=== PATIENT | male | born 1995 | race African-American/Black ===

== ENCOUNTER 2021-05-02 23:54 | Emergency (ER) | payer OTHER, SELFPAY ==
[2021-05-02 23:59] VITALS: BP 136/82; PULSE 78; RESP 18; TEMP 36.4; O2SAT 99
[2021-05-03] MEDS: TETANUS,DIPHTHERIA,AC PERTUSSIS ADULT (0.5 ML) BOOSTRIX IM (01:03)
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
[2021-05-03] MEDS: AMOXICILLIN/CLAVULANATE K 875-125 MG TAB 1 TABLET PO (01:35)
[2021-05-03 01:37] VITALS: BP 124/78; PULSE 89; RESP 17; O2SAT 97
== END 2021-05-03 01:38 | disposition home or self-care (01) ==
PROVIDERS: Emergency Provider Emergency Medicine
DX: S01.511A Laceration without foreign body of lip, initial encounter (principal); Y04.0XXA Assault by unarmed brawl or fight, initial encounter; Z23 Encounter for immunization
CPT/HCPCS: 90471; 90715; 99283; A9270

== ENCOUNTER 2021-10-15 20:43 | Emergency (ER) | payer OTHER, SELFPAY ==
[2021-10-15 20:48] VITALS: BP 139/96; PULSE 65; RESP 16; TEMP 36.6; O2SAT 100
--- NOTE | 2021-10-15 21:19 | ED.GENADULT ---
HPI - General Adult General Chief complaint: Eye Problems Stated complaint: left eye pain Time Seen by Provider: 10/15/21 20:51 History of Present Illness HPI narrative: Patient is a 26-year-old male who presents ER with left eye pain. Ongoing for a week. Was seen at an urgent care and were prescribed ofloxacin drops. No known trauma to the eye. He is having some tearing and rubs his eye regularly. Sclera and conjunctiva are injected. He is recently developed similar inflammation in his right eye. He has mild runny nose. No fevers or chills or sweats. Typically wears contacts was not currently wearing them and left eye so his vision is blurry but there is no other changes to his vision including flashers/floaters/diplopia. No purulent discharge. Related Data Home Medications Medication Instructions Recorded Confirmed ofloxacin 0.3 % eye drops 2 drp QID 10/15/21 10/15/21 Allergies Allergy/AdvReac Type Severity Reaction Status Date / Time No Known Allergies Allergy Verified 10/15/21 20:46 Review of Systems Constitutional: Constitutional: Denies chills and Denies fever(s) Eyes: Eyes: Denies change in vision and Denies photophobia Comments: Tearing, scleral/conjunctival irritation. ENT: Denies sore throat Comments: Rhinorrhea PMFSH Past Medical History Medical History (Updated 10/15/21 @ 21:33 by Guillermo Mccann MD) Healthy adult male Surgical History Surgical History (Updated 10/15/21 @ 21:25 by Guillermo Mccann MD) No pertinent past surgical history Exam Narrative: GENERAL: Well-appearing, well-nourished, and in no acute distress. HEAD: Normocephalic, atraumatic. Eyes: PERRL, EOMI. Both eyes viewed with magnification by slit lamp and with fluorescein staining. Right eye with scleral injection and conjunctival injection. No foreign body or corneal abrasion. Left eye with small corneal abrasion at the 11 o'clock position. There is conjunctival injection and edema as well as scleral injection. No foreign body noted left eye. Eyelid eversion performed without foreign body. SKIN: Warm, dry, no rash. NEURO: Alert and oriented x3. PSYCH: Normal mood and affect. Course Course Emergency Course: Discussed treatment plan. Patient verbalized understanding. Discharge home. Recommend follow-up with ophthalmology. Vital Signs Vital signs: Vital Signs Temperature 98 F 10/15/21 20:48 Pulse Rate 65 10/15/21 20:48 Respiratory Rate 16 10/15/21 20:48 Blood Pressure 139/96 H 10/15/21 20:48 Pulse Oximetry 100 10/15/21 20:48 Temperature 98 F 10/15/21 20:48 Pulse Rate 65 10/15/21 20:48 Respiratory Rate 16 10/15/21 20:48 Blood Pressure 139/96 H 10/15/21 20:48 Pulse Oximetry 100 10/15/21 20:48 Medical Decision Making Vital Signs Vital Signs: Vital Signs Temperature 98 F 10/15/21 20:48 Pulse Rate 65 10/15/21 20:48 Respiratory Rate 16 10/15/21 20:48 Blood Pressure 139/96 H 10/15/21 20:48 Pulse Oximetry 100 10/15/21 20:48 Temperature 98 F 10/15/21 20:48 Pulse Rate 65 10/15/21 20:48 Respiratory Rate 16 10/15/21 20:48 Blood Pressure 139/96 H 10/15/21 20:48 Pulse Oximetry 100 10/15/21 20:48 Discharge Plan Discharge Clinical Impression: Corneal abrasion, Acute viral conjunctivitis of both eyes Patient Disposition: Home, Self-Care Condition: Stable Instructions: Antibiotic Form, Corneal Abrasion (ED), Conjunctivitis (ED) Additional Instructions: It is felt you have a viral infection causing inflammation of your eyes. This lasts 7 to 14 days. Due to rubbing her eyes you have gotten a scratch in her left cornea. This will be treated with apical antibiotics since is not healed with antibiotics you have been using. Return to the ER if you have thick drainage from your eye, you cannot see, or you have severe pain in your eye. Is recommend you follow-up with an calendering machine operator at a local [facility] for [facility]
[2021-10-15] MEDS: TETRACAINE HCL 0.5% OPHTH SOLN 4 ML BTL 1 DROP (21:32)
[2021-10-15] MEDS: FLUORESCEIN SOD 1 MG/STRIP (21:32)
== END 2021-10-15 21:42 | disposition home or self-care (01) ==
PROVIDERS: Emergency Provider Emergency Medicine
DX: B30.9 Viral conjunctivitis, unspecified (principal); S05.02XA Injury of conjunctiva and corneal abrasion without foreign body, left eye, initial encounter; X58.XXXA Exposure to other specified factors, initial encounter
CPT/HCPCS: 99283

== ENCOUNTER 2022-09-29 16:16 | Emergency (ER) | payer OTHER, SELFPAY ==
--- NOTE | 2022-09-29 16:24 | ED.MALEGU ---
HPI - Male Genitourinary General Chief complaint: Urogenital-Male Stated complaint: STD Time Seen by Provider: 09/29/22 16:54 Source: patient and RN notes reviewed Mode of arrival: ambulatory Limitations: no limitations History of Present Illness HPI Narrative: 27 year old female presents with concern for STD exposure. He reports 2-3 day history of dysuria and penile discharge. Reports he was exposed to gonorrhea. He denies fever, aches, chills, sweats Complaint: possible STD exposure Related Data Allergies Allergy/AdvReac Type Severity Reaction Status Date / Time No Known Allergies Allergy Verified 09/29/22 16:23 Review of Systems Review of Systems: CONSTITUTIONAL: Denies malaise, chills, sweats, or fever. CARDIOVASCULAR: Denies chest pain, palpitations, or edema. RESPIRATORY: Denies cough or dyspnea. GASTROINTESTINAL: Denies abdominal pain, nausea, vomiting, diarrhea GENITOURINARY: Reports dysuria, penile discharge. Denies frequency, urgency, suprapubic pressure. Denies flank pain or hematuria. SKIN: Denies rash or itching. MUSCULOSKELETAL: Denies back pain or myalgia. All systems reviewed & are unremarkable except as noted in HPI and below PMFSH Past Medical History Medical History (Updated 09/29/22 @ 17:03 by Freda Olivares NP) Healthy adult male Surgical History Surgical History (Updated 10/15/21 @ 21:25 by Guillermo Mccann MD) No pertinent past surgical history Comments At time of signature, agree with nursing past medical, surgical, social and family history. There is no relevant family history pertinent to the presenting complaint Exam Narrative: GENERAL: Well-appearing, well-nourished, and in no acute distress. HEAD: Normocephalic. EYES: PERRLA, conjunctivae clear. NECK: Supple. No lymphadenopathy CHEST: Clear to auscultation. No respiratory distress. HEART: Regular rate and rhythm. SKIN: Warm, dry, no rash. NEURO: Alert and oriented x3. PSYCH: Normal mood and affect Course Course Emergency Course: Patient is aware of diagnosis, understands and agrees to treatment plan. Anticipatory guidance given. Patient agrees to follow-up as directed and is aware of reasons to seek care at the emergency department. Portions of this record may have been created with voice recognition software Level of Care: Express Care Visit Vital Signs Vital signs: Reviewed. MDM - Male Genitourinary MDM Narrative Medical decision making narrative: Exam findings show no acute concerns or changes; patient is non-toxic appearing and is in no distress. Patient is appropriate for outpatient treatment and follow-up. Critical Care Time Critical Care Time Critical Care Time: No Discharge Plan Discharge Clinical Impression: Exposure to STD Patient Disposition: Home, Self-Care Condition: Stable Instructions: Antibiotic Form, Safe Sex Practices (ED) Additional Instructions: You have been tested for potential gonorrhea, chlamydia, and trichomoniasis today. You have received antibiotics to treat gonorrhea today, a prescription has been called into your pharmacy to treat chlamydia and trichomoniasis. You will receive a phone call in 2-3 days with the results of today's testing. It is very important that you avoid unprotected intercourse during treatment and for 7 days AFTER TREATMENT is complete and until your partner(s) have been treated. Please encourage your partner(s) to seek testing and treatment. When you have been exposed to sexually transmitted infections, it is important that you seek comprehensive testing, since we do not provide testing for all sexually transmitted infections. Some infections can have no symptoms, but cause serious health problems. Contact your health care provider or report to the emergency department if: You have genital swelling or pain, or unusual bleeding. You have joint pain, rash, swollen lymph nodes or night sweats. You are severe abdominal pain. You h
[2022-09-29 16:31] VITALS: BP 119/78; PULSE 79; RESP 16; TEMP 37; O2SAT 99
[2022-09-29] MEDS: cefTRIAXone 500 MG, LIDOCAINE HCL 1% LOCAL INJ 1 ML IM (17:24)
== END 2022-09-29 17:38 | disposition home or self-care (01) ==
PROVIDERS: Emergency Provider Nurse Practitioner
DX: A54.9 Gonococcal infection, unspecified (principal); A74.9 Chlamydial infection, unspecified
CPT/HCPCS: 87491; 87591; 87661; 96372; 99213; G0463; J0696

== ENCOUNTER 2022-12-28 18:35 | Emergency (ER) | payer OTHER, SELFPAY ==
[2022-12-28 18:45] VITALS: BP 132/83; PULSE 71; RESP 12; TEMP 37.4; O2SAT 100
--- NOTE | 2022-12-28 19:04 | ED.GENADULT ---
HPI - General Adult General Chief complaint: Nausea/Vomiting/Diarrhea Stated complaint: stomach issue Time Seen by Provider: 12/28/22 19:04 Source: patient, RN notes reviewed and old records reviewed Mode of arrival: ambulatory Limitations: no limitations History of Present Illness HPI narrative: 27 year old male who presents to [facility] care with complaints of nasal congestion, drainage and cough for the past 4-5 days after stating that son had been ill with an upper respiratory infection. Patient states that he has been taking Ibuprofen and cough syrup for his cold symptoms. 3 days he has been having burning like sensation in his throat like acid reflux but today he started having some discomfort in his epigstric area, has not taken any OTC medications for this complaint. patient denies any nausea or vomiting or diarrhea or any known fevers or body aches. MD complaint: URI, epigastric pain, appetite but can't eat Onset (ago): day(s) (4) Location: abdomen (epigastric) Severity scale (1-10): 4 Quality: burning and aching Treatments prior to arrival: NSAID and other (Robitussin) Related Data Allergies Allergy/AdvReac Type Severity Reaction Status Date / Time No Known Allergies Allergy Verified 12/28/22 18:45 Review of Systems Review of Systems: CONSTITUTIONAL: Denies fever, chills, or sweats. EYES: Denies visual changes, redness, or discharge. ENT: Reports rhinorrhea, congestion, no sore throat, or otalgia. CARDIOVASCULAR: Denies chest pain, palpitations, or edema. RESPIRATORY: Reports cough denies dyspnea. GASTROINTESTINAL: states epigastric discomfort, reports nausea,no vomiting, or diarrhea. GENITOURINARY: Denies dysuria or hematuria. SKIN: Denies rash or itching. MUSCULOSKELETAL: Denies back pain, joint pain, or myalgia. NEUROLOGIC: Denies headache, numbness, or weakness. PSYCHIATRIC: Denies anxiety or depression. All systems reviewed & are unremarkable except as noted in HPI and below PMFSH Past Medical History Medical History (Updated 12/31/22 @ 08:21 by Abby Koroma NP) Healthy adult male Surgical History Surgical History (Updated 10/15/21 @ 21:25 by Guillermo Mccann MD) No pertinent past surgical history Social History Social History (Updated 12/28/22 @ 19:16 by Abby Koroma NP) Smoking status: Current every day smoker Tobacco type: cigarettes Alcohol intake: current Alcohol use details: social Substance use type: does not use Living arrangements: with family Gender identity (if verbalized by the patient): Male Comments At time of signature, agree with nursing past medical, surgical, social and family history. There is no relevant family history pertinent to the presenting complaint Exam Narrative: GENERAL: Well-appearing, well-nourished, and in no acute distress. HEAD: Normocephalic, atraumatic. EYES: PERRLA and EOMI. ENT: Nares red with some clear rhinorrhea no epistaxis. Mucous membranes moist.TM's normal with good light reflex, throat pink with no lesions or swelling NECK: Supple. no lymphadenopathy CHEST: Clear to auscultation. No respiratory distress. cough noted SAO2 100% on room air. HEART: Regular rate and rhythm. No murmur heard. Normal peripheral pulses. ABDOMEN: Soft, nontender to palpation, nondistended, normal active bowel sounds.epigastric burning and discomfort no vomiting or diarrhea admits to some nausea. EXTREMITIES: Normal range of motion. No edema. SKIN: Warm, dry, no rash. NEURO: No focal deficits. Alert and oriented x3. Course Course Emergency Course: Patient is aware of diagnosis, understands and agrees to treatment plan.? Anticipatory guidance given.? Patient agrees to follow-up as directed and is aware of reasons to seek care at the emergency department. Portions of this record may have been created with voice recognition software Level of Care: Express Care Visit Vital Signs Vital signs: Vital Signs Temperature 37.4 C 12/28/22
== END 2022-12-28 19:28 | disposition home or self-care (01) ==
PROVIDERS: Emergency Provider Registered Nurse; PCP Family Medicine
DX: J06.9 Acute upper respiratory infection, unspecified (principal); R05.9 Cough, unspecified; K29.00 Acute gastritis without bleeding; F17.210 Nicotine dependence, cigarettes, uncomplicated
CPT/HCPCS: 99213; G0463

== ENCOUNTER 2023-09-12 10:14 | Emergency (ER) | payer OTHER, SELFPAY ==
[2023-09-12 10:30] VITALS: BP 133/85; PULSE 80; RESP 12; TEMP 37.1; O2SAT 100
--- NOTE | 2023-09-12 10:44 | ED.URI ---
HPI - URI/Sore Throat General Chief Complaint: Upper Respiratory Infection Stated Complaint: sinus issue COVID exp 4 days ago Time Seen by Provider: 09/12/23 10:37 Source: patient and RN notes reviewed Mode of arrival: ambulatory Limitations: no limitations History of Present Illness HPI Narrative: Patient presents today with a 2 day history of nasal congestion and sinus pressure, slight cough with occasional shortness of breath. States he was exposed to COVID 3-4 days ago. Denies fever, sore throat, ear pain. He has tried no [id number] treatment prior to arrival. History of seasonal allergies but does not currently take any control medicine Related Data Home Medications Medication Instructions Recorded Confirmed No Home Medications 09/12/23 09/12/23 Allergies Allergy/AdvReac Type Severity Reaction Status Date / Time No Known Allergies Allergy Verified 12/28/22 18:45 Review of Systems Review of Systems: CONSTITUTIONAL: Denies body aches, fever, chills, or sweats. EYES: Denies visual changes, redness, or discharge. ENT: Denies rhinorrhea, sore throat, or otalgia.+ nasal congestion, sinus pressure CARDIOVASCULAR: Denies chest pain, palpitations, or edema. RESPIRATORY:+ cough, shortness of breath GASTROINTESTINAL: Denies abdominal pain, nausea, vomiting, or diarrhea. GENITOURINARY: Denies dysuria or hematuria. SKIN: Denies rash, itching, or wounds. MUSCULOSKELETAL: Denies back pain, joint pain, or myalgia. NEUROLOGIC: Denies headache, numbness, tingling, or weakness. PSYCH: Denies depression or anxiety. [facility] Past Medical History Medical History Healthy adult male Surgical History Surgical History No pertinent past surgical history Social History Social History Smoking status: Current every day smoker Tobacco type: cigarettes Alcohol intake: current Alcohol use details: social Substance use type: does not use Living arrangements: with family Gender identity (if verbalized by the patient): Male Comments At time of signature, I have reviewed and agree with nursing past medical, surgical, social and family history unless otherwise noted. Please see nursing chart for further information. There is no relevant family history pertinent to the presenting complaint Exam Narrative: GENERAL: Well-appearing, well-nourished, and in no acute distress. HEAD: Normocephalic, atraumatic. EYES: EOMI. No redness or drainage. Conjunctivae normal. ENT: Mucous membranes pink and moist. Nares congestion with rhinorrhea. TMs normal bilaterally. Throat normal. Uvula midline. NECK: Normal AROM. Supple. No lymphadenopathy. CHEST: No respiratory distress. Clear to auscultation. HEART: Regular rate and rhythm. No murmur appreciated. EXTREMITIES: Normal range of motion. No edema. SKIN: Warm, dry, no rash. Capillary refill normal. Normal skin turgor. NEURO: No focal deficits. Alert and oriented x3. Gait steady. PSYCH: Normal affect. No signs of depression or anxiety. Course Course Level of Care: Express Care Visit Vital Signs Vital signs: Vital Signs Temperature 98.7 F 09/12/23 10:30 Pulse Rate 80 09/12/23 10:30 Respiratory Rate 12 09/12/23 10:30 Blood Pressure 133/85 09/12/23 10:30 Pulse Oximetry 100 09/12/23 10:30 Oxygen Delivery Room Air 09/12/23 10:30 Temperature 98.7 F 09/12/23 10:30 Pulse Rate 80 09/12/23 10:30 Respiratory Rate 12 09/12/23 10:30 Blood Pressure 133/85 09/12/23 10:30 Pulse Oximetry 100 09/12/23 10:30 Oxygen Delivery Room Air 09/12/23 10:30 Reviewed MDM - URI/Sore Throat MDM Narrative Medical decision making narrative: COVID and influenza negative. Symptoms likely due to seasonal allergies vs URI. Discussed [id number] medi
== END 2023-09-12 10:55 | disposition home or self-care (01) ==
PROVIDERS: Emergency Provider Nurse Practitioner
DX: J30.2 Other seasonal allergic rhinitis (principal); Z20.822 Contact with and (suspected) exposure to COVID-19; F17.210 Nicotine dependence, cigarettes, uncomplicated
CPT/HCPCS: 87426; 87804; 99213; G0463

== ENCOUNTER 2023-09-24 18:08 | Emergency (ER) | payer OTHER, SELFPAY ==
--- NOTE | ~2023-09-24 | XR_ITS ---
EXAMINATION: XR chest 2V 09/24/2023 19:15 INDICATION: Cough PROCEDURE: 2 view chest COMPARISON: No prior studies FINDINGS: The lungs are clear. The cardiomediastinal silhouette is within normal limits. There are no pleural effusions. There is no pneumothorax suspected. IMPRESSION: 1: NO ACUTE CARDIOPULMONARY DISEASE. Reviewed, dictated and finalized at location A.
--- NOTE | 2023-09-24 18:14 | ED.PSYCH ---
HPI - Psych General Chief Complaint: Psychiatric Symptoms Stated Complaint: hearing voices Time Seen by Provider: 09/24/23 18:12 History of Present Illness HPI Narrative: Patient is a 28 year old male with history of alcohol use and occasional drug use here with paranoia and hallucinations. Patient and mom state that the auditory hallucinations have been going on for several years however he has never sought care for them in the past. He describes paranoia and auditory hallucinations which include feeling as though the police have planted cameras throughout his home and are watching and listening to him. He describes hearing police surveillance. He denies any command hallucinations. No SI/HI. Patient does note he attempts to drown out the sounds by drinking alcohol and occasionally using drugs, he last drank this weekend and believes he used meth this weekend. 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 He otherwise feels well, no prior mental health diagnoses. He has a family history of depression and anxiety in his mom's side of the family however he is unsure about his dad's side of the family. He notes a cough over the last 1 week. Non productive. No associated fever, chills, shortness of breath. Related Data Home Medications Medication Instructions Recorded Confirmed No Home Medications 09/12/23 09/12/23 Allergies Allergy/AdvReac Type Severity Reaction Status Date / Time No Known Allergies Allergy Verified 09/24/23 18:40 Review of Systems Review of Systems: All systems reviewed & are unremarkable except as noted in HPI and below PMFSH Past Medical History Medical History Healthy adult male Surgical History Surgical History No pertinent past surgical history Social History Social History Smoking status: Current every day smoker Tobacco type: cigarettes Alcohol intake: current Alcohol use details: social Substance use type: does not use Living arrangements: with family Gender identity (if verbalized by the patient): Male Exam Narrative: GENERAL: Well-appearing, well-nourished, and in no acute distress. HEAD: Normocephalic, atraumatic. EYES: PERRLA and EOMI. ENT: Nares clear. Mucous membranes moist. NECK: Supple. CHEST: Clear to auscultation. No respiratory distress. HEART: Regular rate and rhythm. Normal peripheral pulses. ABDOMEN: Soft, nontender, nondistended. EXTREMITIES: Normal range of motion. No edema. SKIN: Warm, dry, no rash. NEURO: No focal deficits. Alert and oriented x3. PSYCH: Normal mood and affect. Paranoia, auditory and visual hallucinations. Course Course Emergency Course: Chart review performed. Patient here with psychiatric symptoms. Triage vitals normal. Last visit in our system for URI. Patient seen and evaluated. He is in no distress, having some hallucinations and paranoia of police surveillance. He has never attempted to get care for these since they began about 2 years ago. Will do behavioral health lab work, CXR given cough, have [facility] come and evaluate him. Patient and mom at bedside agreeable to workup and plan. Lab work reviewed, CBC unremarkable, CMP grossly normal. UA negative for UTI. UDS positive for opiates and amphetamines. ETOH negative. COVID negative. CXR negative. Patient medically cleared at this time for [facility] evaluation. Patient has been evaluated by [facility]. Extensive resources have been provided. Safety plan has been performed. The results of pertinent diagnostic studies and exam findings were discussed. The patient?s provisional diagnosis and plan of care were discussed with the patient and present family.
[2023-09-24 18:15] VITALS: BP 134/90; PULSE 110; RESP 16; TEMP 37.1; O2SAT 98
[2023-09-24 18:35] LABS: Basophils Absolute Auto 0.1 K/mm3 (0.0-0.1); Basophils Percent Auto 0.9 % (0.2-1.2); Eosinophils Absolute Auto 0.2 K/mm3 (0-0.3); Eosinophils Percent Auto 2.7 % (0-4.4); Hemoglobin 16.6 g/dL (14.0-18.0); Immature Granulocyte Absolute 0.02 K/mm3 (0.00-0.031); Immature Granulocyte Percent A 0.2 % (0-0.5); Lymphocytes Absolute Auto 2.02 K/mm3 (0.9-3.2); Lymphocytes Percent Auto 24.6 % (18.3-44.2); Mean Corpuscular HGB Conc 34.6 g/dl (32-36); Mean Corpuscular Hemoglobin 29.9 pg (26-34); Mean Corpuscular Volume 86.3 fl (80-100); Mean Platelet Volume 8.3 fl (7.4-10.4); Monocytes Absolute Auto 0.8 K/mm3 (0.1-0.6); Monocytes Percent Auto 9.9 % (2.6-8.5); Neutrophils Absolute Auto 5.1 K/mm3 (1.3-6.7); Neutrophils Percent Auto 61.7 % (45.5-73.1); Platelet Count Result 456 k/mm3 (150-375); Red Blood Count 5.56 M/mm3 (4.6-6.20); Red Cell Distribution Width 12.9 % (11.5-14.5); White Blood Count 8.2 K/mm3 (4.5-10.0)
[2023-09-24 18:51] LABS: Alanine Aminotransferase 36 U/L (6-50); Albumin Level 4.6 g/dL (3.5-5.1); Alkaline Phosphatase 89 U/L (38-126); Anion Gap 8 mmol/L (4-12); Aspartate Amino Transferase 37 U/L (17-59); Bilirubin,Total 0.9 mg/dL (0.2-1.3); Blood Urea Nitrogen 9 mg/dL (9-20); Calcium 9.4 mg/dL (8.4-10.2); Carbon Dioxide 25 mmol/L (22-30); Chloride 106 mmol/L (98-107); Estimated CRCL calculation 103 ml/min; Estimated Glomerular Filt Rate > 60; Glucose 151 mg/dL (65-110); Sodium 139 mmol/L (137-145)
[2023-09-24 18:57] LABS: Appearance Urine Clear (Clear); Bacteria Urine None Seen /hpf; Bilirubin Urine 1+ (Negative); Blood Urine Negative (Negative); Color Urine Dark Yellow (Yellow); Glucose Urine UA Negative (Negative); Ketones Urine 1+ mg/dL (Negative); Leukocyte Esterase Ur Trace LEU/UL (Negative); Need Manual Microscopic Reviewed; Nitrate Urine Negative (Negative); Protein Urine Trace mg/dL (Negative); RBC Urine 0-2 /hpf (0-2); Specific Grav Ur 1.024 (1.001-1.035); Squamous Epithelial Cell Urine None Seen /hpf (Few); pH Urine 5.5 (5.0-9.0)
[2023-09-24 18:58] LABS: Add Urine Microscopic? YES
[2023-09-24 19:02] LABS: Barbiturate Screen Urine Negative (Negative); Benzodiazepines Screen Urine Negative (Negative)
[2023-09-24 19:05] LABS: Cannabinoid Screen Urine Negative (Negative); Cocaine Screen Urine Negative (Negative); Methadone Screen Urine Negative (Negative); Opiate Screen Urine Positive (Negative); Phencyclidine Screen Urine Negative (Negative)
[2023-09-24 19:10] LABS: Ethanol < 10 mg/dL (<10)
[2023-09-24 19:11] LABS: SARS-CoV-2 RNA PCR Negative (Negative)
[2023-09-24 19:27] LABS: Amphetamine Screen Urine Positive (Negative)
[2023-09-24 19:34] LABS: Thyroid Stimulating Hormone Reflex 0.839 uIU/mL (0.465-4.68)
== END 2023-09-24 21:10 | disposition home or self-care (01) ==
PROVIDERS: Emergency Provider Student in an Organized Health Care Education/Training Program
DX: F22 Delusional disorders (principal); Z11.52 Encounter for screening for COVID-19; F17.210 Nicotine dependence, cigarettes, uncomplicated
CPT/HCPCS: 36415; 71046; 80053; 80307; 81001; 84443; 85025; 87086; 87635; 99284

== ENCOUNTER 2023-11-20 17:56 | Emergency (ER) | payer OTHER, SELFPAY ==
[2023-11-20 18:08] VITALS: BP 122/69; PULSE 63; RESP 16; TEMP 37; O2SAT 100
--- NOTE | 2023-11-20 18:19 | ED.WOUNDLAC ---
HPI - Wound/Laceration General Chief Complaint: Wound/Laceration Stated Complaint: Left Hand Finger Laceration Source: patient History of Present Illness HPI narrative: Patient presents with complaints of laceration to left 3rd finger. He reports the laceration happened while at work at approximately 2:00 p.m. today. It was a crush injury, metal fell on to the left 3rd digit. He is unable to feel the affected digit. There is a laceration that involves the nail. He does not retain full range of motion to the affected finger. He does report that his tetanus is up-to-date, less than 5 years old Related Data Home Medications Medication Instructions Recorded Confirmed No Home Medications 09/12/23 11/20/23 Allergies Allergy/AdvReac Type Severity Reaction Status Date / Time No Known Allergies Allergy Verified 11/20/23 18:29 Review of Systems Review of Systems: All systems reviewed & are unremarkable except as noted in HPI and below Constitutional: Constitutional: Reports no additional constitutional complaints ENT: Reports system reviewed and no additional complaints, except as documented Cardiovascular: Cardiovascular: Reports no additional cardiovascular complaints Respiratory: Respiratory: Reports no additional respiratory complaints Gastrointestinal: Gastrointestinal: Reports no additional gastrointestinal complaints Musculoskeletal: Musculoskeletal: Reports as per HPI Integumentary/Breasts: Skin/Breast: Reports as per HPI Neurologic: Reports as per HPI [facility] Past Medical History Medical History Healthy adult male Surgical History Surgical History No pertinent past surgical history Social History Social History Smoking status: Current every day smoker Tobacco type: cigarettes Alcohol intake: current Alcohol use details: social Substance use type: does not use Living arrangements: with family Gender identity (if verbalized by the patient): Male Exam Const: General: cooperative, no acute distress, alert and awake Orientation/consciousness: oriented to person, oriented to place and oriented to time HENMT: Head: normal to inspection Resp: Effort & Inspection: normal respiratory effort and able to speak in complete sentences Auscultation: clear to auscultation bilaterally, no crackles, no rales, no rhonchi and no wheezes Cardio: Palpation: normal PMI Rate: regular rate Rhythm: regular rhythm Heart sounds: S1 normal heart sound present and S2 normal heart sound present Neuro: General: oriented to person, oriented to place and oriented to time Cranial nerves: Yes CN's II-XII intact bilaterally Extrem: Right upper extremity: Extremity exam: right hand (Left 3rd digit with crush injury, lac extends through nail bed. ) abnormal ROM of finger unable to flex; neuromotor exam abnormal (Unable to feel finger) Psych: Appearance: grossly normal Thought process: Normal thought process present Insight: Good insight present (Psych) Judgement: Good judgement present (Psych) Course Course Level of Care: Express Care Visit Vital Signs Vital signs: Vital Signs Temperature 98.6 F 11/20/23 18:08 Pulse Rate 63 11/20/23 18:08 Respiratory Rate 16 11/20/23 18:08 Blood Pressure 122/69 11/20/23 18:08 Pulse Oximetry 100 11/20/23 18:08 Oxygen Delivery Room Air 11/20/23 18:08 Temperature 98.6 F 11/20/23 18:08 Pulse Rate 63 11/20/23 18:08 Respiratory Rate 16 11/20/23 18:08 Blood Pressure 122/69 11/20/23 18:08 Pulse Oximetry 100 11/20/23 18:08 Oxygen Delivery Room Air 11/20/23 18:08 Transfer Transfered to: [facility] Transportation: Other (private car, declines EMS transport) Transfer rationale: Patient with significant crush injury to the left 3rd finger, requires higher level of c
== END 2023-11-20 18:21 | disposition short-term general hospital (02) ==
PROVIDERS: Emergency Provider Nurse Practitioner Family
DX: S67.193A Crushing injury of left middle finger, initial encounter (principal); S61.313A Laceration without foreign body of left middle finger with damage to nail, initial encounter; W20.8XXA Other cause of strike by thrown, projected or falling object, initial encounter; Y99.0 Civilian activity done for income or pay; F17.210 Nicotine dependence, cigarettes, uncomplicated
CPT/HCPCS: 99212; G0463

== ENCOUNTER 2023-11-20 18:46 | Emergency (ER) | payer OTHER, SELFPAY ==
--- NOTE | ~2023-11-20 | XR_ITS ---
EXAM: XR finger 3rd LT min 2V DATE: 11/20/2023 22:40 HISTORY: DROPPED HEAVY METAL PIECE ON 3RD DIGIT TONIGHT . COMPARISON: None available. FINDINGS: Normal mineralization. Comminuted fracture of the left third distal tuft. No lytic or kiel tic lesion. Joint spaces and physes are maintained. No erosion or periosteal change. Soft tissue irre gularity of the tip of the third finger. Punctate radio opaque debris at the tip of the finger. IMPRESSION: Comminuted fracture of the left third distal tuft. Overlying soft tissue irregularity, co nsider the possibility of open fracture. Punctate radiopaque debris at the tip of the left third fing er. Reviewed, dictated and finalized at location K. IMPRESSION: Comminuted fracture of the left third distal tuft. Overlying soft t issue irregularity, consider the possibility of open fracture. Punctate radiopa que debris at the tip of the left third finger.
[2023-11-20 18:58] VITALS: BP 121/78; PULSE 64; RESP 18; TEMP 36.8; O2SAT 100
--- NOTE | 2023-11-20 19:02 | PC.NURSE ---
non adherent gauze and NS irrigation done out in triage.
[2023-11-20 21:14] VITALS: BP 128/85; PULSE 60; RESP 17; TEMP 36.6; O2SAT 100
--- NOTE | 2023-11-20 21:16 | PC.NURSE ---
patient states that he is up to date on his tetanus shot and has received one within the last 5 years.
[2023-11-20] MEDS: HYDROcodone/acetaminophen (*CRX) 5-325 MG TABLET 1 TAB PO (23:18)
--- NOTE | 2023-11-20 23:48 | ED.WOUNDLAC ---
HPI - Wound/Laceration General Chief Complaint: Wound/Laceration Stated Complaint: laceration to left middle finger Time Seen by Provider: 11/20/23 21:29 Source: patient Mode of arrival: ambulatory Limitations: no limitations History of Present Illness HPI narrative: Patient is a 28-year-old male who presents the ED with report of a laceration to his left 3rd digit. Patient reports he was at work today when a heavy piece of metal smashed his left 3rd digit. He sustained a laceration to the medial surface of his digit surrounding the nail. Patient took ibuprofen immediately after the incident. No other injuries. Tetanus up-to-date as of 5 years ago. Does report mild tingling and pain in his digit. Related Data Allergies Allergy/AdvReac Type Severity Reaction Status Date / Time No Known Allergies Allergy Verified 11/20/23 18:29 Review of Systems Review of Systems: CONSTITUTIONAL: Denies fever, chills, or sweats. SKIN: See HPI MUSCULOSKELETAL: See HPI All systems reviewed & are unremarkable except as noted in HPI and below PMFSH Past Medical History Medical History Healthy adult male Surgical History Surgical History No pertinent past surgical history Social History Social History Smoking status: Current every day smoker Tobacco type: cigarettes Alcohol intake: current Alcohol use details: social Substance use type: does not use Living arrangements: with family Gender identity (if verbalized by the patient): Male Exam Narrative: GENERAL: Well appearing, well-nourished, non-toxic, in no acute distress. HEAD: Normocephalic, atraumatic. RESPIRATORY: Airway patent, respirations nonlabored. CARDIOVASCULAR: Regular rate and rhythm. Radial pulses intact. MUSCULOSKELETAL: Moves all extremities. Laceration to radial edge of left 3rd digit surrounding lateral edge of nail plate extending to distal finger tip. Nail cuticle is intact. No significant active bleeding. No subungual hematoma. Distal sensation intact. Capillary refill intact. SKIN: Warm, dry, normal color. NEURO: A&O X3. Speech clear. PSYCHIATRIC: Appropriate mood and affect. Normal interaction. Course Vital Signs Vital signs: Vital Signs Temperature 98.2 F 11/20/23 18:58 Pulse Rate 64 11/20/23 18:58 Respiratory Rate 18 11/20/23 18:58 Blood Pressure 121/78 11/20/23 18:58 Pulse Oximetry 100 11/20/23 18:58 Oxygen Delivery Room Air 11/20/23 18:58 Temperature 97.9 F 11/20/23 21:14 Pulse Rate 60 11/20/23 21:14 Respiratory Rate 17 11/20/23 21:14 Blood Pressure 128/85 11/20/23 21:14 Pulse Oximetry 100 11/20/23 21:14 Oxygen Delivery Room Air 11/20/23 18:58 Procedures Laceration Laceration 1: Date: 11/21/23 Time: 01:20 Site: hand (R 3rd digit) Side (If applicable): right Size (cm): 2 Description: irregular Depth: simple, single layer Local Anesthetic: other anesthetic (digital block) Pre-repair: wound explored, irrigated and irrigated extensively ====== Skin Level ====== Skin layer closed with: nylon Size (cm): 4-0 Number of sutures: 4 (including 1 suture through nail bed) Technique: simple, interrupted ====== Subcutaneous Layer ====== ====== Muscle Layer ====== ====== Tendon Layer ====== Nerve Block Nerve Block 1: Nerve block date: 11/21/23 Nerve block time: 01:00 Time out performed: Yes Local Anesthetic: lidocaine 1% Amount of anesthesia used (mL): 5 Side: right Nerve Blocks: digital (3rd digit) Procedure Successful: Yes Patient Tolerated Procedure: well and no complications Complications: none MDM - Wound/Laceration MDM
[2023-11-21] MEDS: ceFAZolin SODIUM 1 GM VIAL IM (00:02)
[2023-11-21] MEDS: IBUPROFEN 400 MG TABLET 800 MG PO (01:56)
[2023-11-21 02:11] VITALS: BP 122/74; PULSE 79; RESP 15; O2SAT 100
== END 2023-11-21 02:12 | disposition home or self-care (01) ==
PROVIDERS: Emergency Provider Physician Assistant
DX: S62.633B Displaced fracture of distal phalanx of left middle finger, initial encounter for open fracture (principal); F17.210 Nicotine dependence, cigarettes, uncomplicated; W20.8XXA Other cause of strike by thrown, projected or falling object, initial encounter
CPT/HCPCS: 12001; 29130; 73140; 96372; 99284; A9270; J0690

== ENCOUNTER 2024-04-24 11:13 | Emergency (ER) | payer OTHER, SELFPAY ==
[2024-04-24 11:19] VITALS: BP 124/87; PULSE 80; RESP 16; TEMP 36.8; O2SAT 99
--- NOTE | 2024-04-24 12:08 | ED_ITS ---
HPI - URI/Sore Throat General Chief Complaint: Upper Respiratory Infection Stated Complaint: cough Time Seen by Provider: 04/24/24 12:09 Source: patient, RN notes reviewed and old records reviewed Mode of arrival: ambulatory Limitations: no limitations History of Present Illness HPI Narrative: 29-year-old male presents to the [facility] with upper respiratory symptoms, cough. States he started with some congestion and a mild cough on the 05 of March. At that time he did not seek care or treatment. On April 10 did a telehealth visit, was prescribed a nasal spray and cough medication. Still having the cough. Patient still having intermittent laryngitis. Treatments prior to arrival: cold medicine Related Data Allergies Allergy/AdvReac Type Severity Reaction Status Date / Time No Known Allergies Allergy Verified 04/24/24 11:37 Review of Systems Review of Systems: All systems reviewed & are unremarkable except as noted in HPI and below Constitutional: Constitutional: Reports no additional constitutional complaints ENT: Reports as per HPI Cardiovascular: Cardiovascular: Reports no additional cardiovascular complaints, Denies chest pain and Denies dyspnea Respiratory: Respiratory: Reports as per HPI, Denies chest congestion, Reports cough and Denies dyspnea Musculoskeletal: Musculoskeletal: Reports no additional musculoskeletal complaints Integumentary/Breasts: Skin/Breast: Reports system reviewed and no additional complaints, except as docu PMFSH Past Medical History Medical History Healthy adult male Surgical History Surgical History No pertinent past surgical history Social History Social History Smoking status: Current every day smoker Tobacco type: cigarettes Alcohol intake: current Alcohol use details: social Substance use type: does not use Living arrangements: with family Gender identity (if verbalized by the patient): Male Comments At the time of my signature, I reviewed and agree with the nursing past medical, surgical, social, and family history. There is no relevant family history pertinent to the patient complaint. Exam Const: General: cooperative, healthy appearing, comfortable, no acute distress, well developed, alert and well nourished Nutritional Appearance: well nourished Orientation/consciousness: patient oriented x3 Limitations: no limitations HENMT: Head: normal to inspection Ears: hearing grossly normal bilaterally, external ears normal, TM's normal bilaterally, EAC's normal, mastoids normal and no periauricular adenopathy Face/Nose/Sinus: normal facial exam and face symmetric Face and sinus: normal facial exam and face symmetric Mouth: Yes Normal oral and palatal mucosa present, Yes lip normal, Yes tongue normal and Yes moist mucous membranes Throat: posterior oropharynx normal, uvula midline, postnasal drainage and no uvular edema Eyes: General: appearance normal, both eyes and all related structures Neck: Neck: normal visual inspection, full ROM, no lymphadenopathy and no meningeal signs Chest: Chest palpation & inspection: normal inspection of the chest Resp: Effort & Inspection: normal respiratory effort and able to speak in complete sentences Auscultation: clear to auscultation bilaterally, no crackles, no rales, no rhonchi and no wheezes Cardio: Rate: regular rate Skin: General skin exam: normal color and no rashes or lesions noted Neuro: General: patient oriented x3, gait normal, moves all extremities and no meningeal signs Cognition (Neuro): normal cognition Speech: normal speech Gait exam (Neuro): Normal gait present Extrem: General: normal to inspection, full ROM, capillary refill normal and normal gait Psych: Appearance: grossly normal and well kempt Mental Status: mental s tatus grossly normal Speech and movement: Normal speech and movement present and Clear speech present Affect: normal affect Attitude: cooperative Course Course Level of Care: Express Care Visit Vital Signs Vital signs: Vital Signs Temperature 98.3 F 04/24/24 11:19 Pulse Rate 80 04/24/24 11:19 Respiratory Rate 16 04/24/24 11:19 Blood Pressure 124/87 04/24/24 11:19 Pulse Oximetry 99 04/24/24 11:19 Oxygen Delivery Room Air 04/24/24 11:19 Temperature 98.3 F 04/24/24 11:19 Pulse Rate 80 04/24/24 11:19 Respiratory Rate 16 04/24/24 11:19 Blood Pressure 124/87 04/24/24 11:19 Pulse Oximetry 99 04/24/24 11:19 Oxygen Delivery Room Air 04/24/24 11:19 Reviewed MDM - URI/Sore Throat MDM Narrative Medical decision making narrative: Patient sitting in exam room. Nontoxic, vitals stable. Patient in no acute distress. Patient presents with a 7 week history of upper respiratory symptoms. About 3 weeks ago was prescribed a nasal spray and cough medication through a telehealth doctor. States he has not had improvement. No acute findings except for postnasal drainage noted on exam. Discussed [id number] treatments, will prescribe doxycycline for possible secondary bacterial infection, encouraged [id number] products as well. Patient appropriate for outpatient treatment and follow-up Discharge instructions reviewed with patient, as well as provided in writing per nursing staff. The instructions also include specific and strict return/GO TO THE ER as well as f/u information. All questions have been answered, and the patient deny any further questions with discharge and discharge plan. Some parts of this dictation were generated by voice recognition software and may contain typographical and/or grammatical inaccuracies. Differential Diagnosis Differential diagnosis: Likely upper respiratory infection, otitis media, sinusitis, viral infection, bronchitis and pharyngitis Critical Care Time Critical Care Time Critical Care Time: No Discharge Plan Discharge Clinical Impression: Bronchitis Patient Disposition: Home, Self-Care Condition: Stable Instructions: Antibiotic Form, Acute Bronchitis (ED) Additional Instructions: It is very important to treat your symptoms. Drink plenty of water, Gatorade, Pedialyte, ice pops or Jell-O. -Alternate Tylenol and Motrin per package directions for fever or pain. You can alternate every 4 hours -Antihistamine medication such as Benadryl at night and Zyrtec/Claritin/Laurel during the day can help improve symptoms. -doing daily nasal irrigations can help relieve pressure your sinuses. Things like a Neti pot -Use Flonase twice a day for 5 days then daily to help reduce the inflammation and dry up your sinuses. -You can also use Mucinex. Be sure to drink plenty of water with this medication at least 8 ounces with every dose and it is important to drink 8 to 10 glasses of water per day. Water is a natural decongestant -Eat and drink things that are easy to swallow, like tea or soup, or popsicles. -Oral rinses such as: Salt water gargles and/or may use topical anesthetic (eg. Chloraseptic spray) or lozenges to relieve dryness or throat pain). -Frequent hand washing or hand distillery miller is one of the best ways to prevent spread of infection. -Using a vaporizer or humidifier at night will also help thin secretions and help with coughing up phlegm. -Follow up with primary care provider in 7-10 days if condition is not improving If you are having a hard time finding a physician please call our [facility] liaison at [phone]. - For new or worsening symptoms go directly to the nearest ER Patient Language: Macedonian Prescriptions: New doxycycline monohydrate 100 mg tablet 100 mg PO BID Qty: 14 0RF prednisone 20 mg tablet See Rx Instructions .Route .COMPLEX Qty: 9 0RF Rx Instructions: Take 40 mg daily for 3 days, 20 mg daily for 3 days fluticasone propionate [Flonase Allergy Relief] 50 mcg/actuation spray,suspension 2 spray intranasal DAILY Qty: 16 0RF Rx Instructions: administer into each nostril Follow-up/Referrals: Julio Griffith MD [Physician] - 2 Weeks ([facility] follow-up) PHYSICIAN,FAMILY CON[employer]ER SCIENCE TE[employer]ER [Primary Care Provider] - Stand Alone Forms: Work/School Release IP Time of Disposition: 12:28
== END 2024-04-24 12:45 | disposition home or self-care (01) ==
PROVIDERS: Emergency Provider Nurse Practitioner
DX: J40 Bronchitis, not specified as acute or chronic (principal); F17.210 Nicotine dependence, cigarettes, uncomplicated
CPT/HCPCS: 99213; G0463